=== PATIENT | male | born 1965 | race Caucasian/White ===

== ENCOUNTER 2017-02-02 13:22 | Emergency (ER) | payer MEDICAID ==
[~2017-02-02] VITALS: Ht 180.3 cm; Wt 61.9 kg
[~2017-02-02 13:22] MED LIST: AZIT600T2 PO; EMTR1TAB12 PO; MULT-412 PO; PRED20TA PO; RALT400T PO; SULF1TAB24 PO; SULF1TAB3 PO; TENO300T2 PO
[2017-02-02 13:25] VITALS: BP 99/70
[2017-02-02] MEDS ORDERED: PROPARACAINE OPHTH 0.5%, 15ML EACHEYE ONE (14:00)
[2017-02-02] MEDS ORDERED: FLUORESCEIN OPHTHALMIC 1 MG STRIP EACHEYE ONE (14:00)
[2017-02-02] MEDS ORDERED: PROPARACAINE OPHTH 0.5%, 15ML ONE (14:15)
[2017-02-02] MEDS ORDERED: FLUORESCEIN OPHTHALMIC 1 MG STRIP ONE (14:15)
== END 2017-02-02 14:26 | disposition home or self-care (01) ==
LOC: ED 14:00
DX: H54.61 Unqualified visual loss, right eye, normal vision left eye (principal); H18.40 Unspecified corneal degeneration
CPT/HCPCS: 99281

== ENCOUNTER → 2017-09-07 | Outpatient (CLI) | payer MEDICAID ==
[~2017-09-07] MED LIST changes: -AZIT600T2 PO; +AZIT600T4 PO; -EMTR1TAB12 PO; +EMTR1TAB8 PO; +GADOBUTROL 7.5 MMOL/7.5 ML PFS ONE; +SULF-169 PO; -SULF1TAB3 PO; -TENO300T2 PO; +TENO300T5 PO
== END | disposition home or self-care (01) ==
LOC: CFH 14:22
PROVIDERS: ATTEND Ophthalmology
DX: H33.21 Serous retinal detachment, right eye (principal); H57.8 Other specified disorders of eye and adnexa; C69.01 Malignant neoplasm of right conjunctiva; C69.1 Malignant neoplasm of cornea
CPT/HCPCS: 70543; A9585

== ENCOUNTER 2017-12-06 14:25 | Inpatient (IN) | payer MEDICAID ==
[~2017-12-06] VITALS: Ht 180.3 cm; Wt 54.3 kg
[2017-12-06 13:23] LABS: BASOPHILS # (AUTO) 0.01 x10^3/uL (0-0.1); BASOPHILS % (AUTO) 0 % (0-1); EOSINOPHILS # (AUTO) 0.06 x10^3/uL (0-0.4); EOSINOPHILS % (AUTO) 1 % (1-7); LYMPHOCYTES # (AUTO) 0.51 x10^3/uL (1-3.4); LYMPHOCYTES % (AUTO) 7 % (22-44); MD NO; MEAN CORPUSCULAR HEMOGLOBIN 23.7 pg (27.5-34.5); MEAN CORPUSCULAR HGB CONC 32.6 g/dL (33.2-36.2); MEAN CORPUSCULAR VOLUME 72.7 fL (81-97); MEAN PLATELET VOLUME 6.9 fL (7.4-10.4); MONOCYTES # (AUTO) 0.63 x10^3/uL (0.2-0.8); MONOCYTES % (AUTO) 8 % (2-9); NEUTROPHILS # (AUTO) 6.38 x10^3/uL (1.8-6.8); NEUTROPHILS % (AUTO) 84 % (42-75); PLATELET COUNT 598 x10^3/uL (130-400); RED BLOOD COUNT 3.92 x10^6/uL (4.38-5.82); RED CELL DISTRIBUTION WIDTH 16.8 % (9.4-14.8)
[2017-12-06 13:30] LABS: INTERNATIONAL NORMALIZED RATIO 1.05 (0.93-1.1); PROTHROMBIN TIME 10.9 Seconds (9.6-11.5)
[2017-12-06 13:35] LABS: ANION GAP 9 mmol/L (5-15); CALCIUM 8.4 mg/dL (8.5-10.1); CHLORIDE 103 mmol/L (98-107)
[2017-12-06 13:38] LABS: TROPONIN I < 0.015 ng/mL (0.000-0.045)
[~2017-12-06 14:25] MED LIST changes: +AMOX1TAB64 PO; -GADOBUTROL 7.5 MMOL/7.5 ML PFS ONE; +LORazepam 2 MG/ML, 1ML IVP ONE; +SODIUM CHLORIDE 0.9% 1,000 ML IV ONE; +SODIUM CHLORIDE 0.9% 1,000ML IVBOLUS ONE; +SODIUM CHLORIDE FLUSH 10ML SYR IVF ONE
[2017-12-06] MEDS ORDERED: SODIUM CHLORIDE FLUSH 10ML SYR IVF PRN (14:30)
[2017-12-06] MEDS ORDERED: CEFTRIAXONE PMX 1GM/50ML 50 ML IVPB ONE (14:30)
[2017-12-06] MEDS ORDERED: AZITHROMYCIN 500 MG in SODIUM CHLORIDE 0.9% 250 ML IVPB ONE (14:30)
[2017-12-06] MEDS ORDERED: CEFTRIAXONE PMX 1GM/50ML 50 ML ONE (14:33)
[2017-12-06] MEDS ORDERED: ACETAMINOPHEN 325 MG TABLET PO PRN (15:00)
[2017-12-06 15:24] VITALS: BP 117/68
[2017-12-06 15:30] VITALS: BP 117/86
[2017-12-06] MEDS ORDERED: NICOTINE 7 MG/24 HR PATCH.TD24 TD SCH (16:00)
[2017-12-06] MEDS ORDERED: VANCOMYCIN PER PHARMACY MC PRN (16:00)
[2017-12-06] MEDS: SODIUM CHLORIDE 0.9% 1,000 ML IV SCH (16:02)
[2017-12-06] MEDS ORDERED: PIPERACILLIN/TAZO/PMX 2.25GM 50 ML IV SCH (16:30)
[2017-12-06] MEDS ORDERED: PHARMACOKINETIC CONSULTATION MC ONE (17:00)
[2017-12-06] MEDS ORDERED: PHARMACOKINETIC MONITORING MC PRN (17:00)
[2017-12-06] MEDS: HEPARIN 5,000 UNITS/ML, 1ML SQ SCH ×2 (17:00→17:06)
[2017-12-06] MEDS: PIPERACILLIN/TAZO/PMX 2.25GM 50 ML IV SCH ×2 (17:06→23:14)
[2017-12-06] MEDS: VANCOMYCIN PMX 1GM/200ML 200 ML IV SCH (17:38)
[2017-12-06 19:30] LABS: AMPHETAMINE SCREEN, URINE Positive (Negative); BARBITURATE SCREEN, URINE Negative (Negative); BENZODIAZEPINE SCREEN, URINE Negative (Negative); CANNABINOID SCREEN, URINE Negative (Negative); COCAINE SCREEN, URINE Negative (Negative); METHADONE SCREEN, URINE Negative (Negative); OPIATE SCREEN, URINE Negative (Negative)
[2017-12-06] MEDS: RALTEGRAVIR 400 MG TABLET PO SCH (19:58)
[2017-12-06] MEDS: SULFAMETH./TRIMETHOPRIM DS 800MG/160MG TABLET PO SCH (19:58)
[2017-12-06 20:28] VITALS: BP 93/51
[2017-12-07] MEDS: HEPARIN 5,000 UNITS/ML, 1ML SQ SCH ×2 (01:00→08:11)
[2017-12-07] MEDS: PIPERACILLIN/TAZO/PMX 2.25GM 50 ML IV SCH ×2 (05:33→11:41)
[2017-12-07] MEDS: SODIUM CHLORIDE 0.9% 1,000 ML IV SCH (08:10)
[2017-12-07] MEDS: RALTEGRAVIR 400 MG TABLET PO SCH (08:11)
[2017-12-07] MEDS: SULFAMETH./TRIMETHOPRIM DS 800MG/160MG TABLET PO SCH (08:11)
[2017-12-07 08:13] VITALS: BP 95/49
[2017-12-07] MEDS ORDERED: EMTRICITABINE/TENOFOVIR 200 MG/300 MG TABLET PO SCH (09:00)
[2017-12-07] MEDS: VANCOMYCIN PMX 1GM/200ML 200 ML IV SCH (11:30)
[2017-12-07 12:30] VITALS: BP 92/63
== END 2017-12-07 14:30 | disposition home or self-care (01) | DRG 975 ==
LOC: ED 14:25 → EDIP 14:26 → 4NOR 15:47
PROVIDERS: ADMIT Internal Medicine Pulmonary Disease; ATTEND Internal Medicine Pulmonary Disease
PROC: 0W993ZZ Drainage of Right Pleural Cavity, Percutaneous Approach (ICD-10-PCS; principal; 2017-12-06)
DX: B20 Human immunodeficiency virus [HIV] disease (principal); J15.9 Unspecified bacterial pneumonia; J90 Pleural effusion, not elsewhere classified; A53.9 Syphilis, unspecified; C69.90 Malignant neoplasm of unspecified site of unspecified eye; D63.8 Anemia in other chronic diseases classified elsewhere; D64.9 Anemia, unspecified; F15.10 Other stimulant abuse, uncomplicated; F17.210 Nicotine dependence, cigarettes, uncomplicated; Z66 Do not resuscitate; R09.02 Hypoxemia; Z87.01 Personal history of pneumonia (recurrent); Z91.19 Patient's noncompliance with other medical treatment and regimen; Z89.021 Acquired absence of right finger(s)
CPT/HCPCS: 32555; 36415; 71046; 80048; 80307; 82040; 83605; 83880; 84145; 84484; 85025; 85610; 85730; 87040; 93005; 96374; J0696; J1644; J2543; J3370; J7030